=== PATIENT | female | born 1980 | race Two or more races ===

== ENCOUNTER 2019-11-06 11:40 | Observation (INO) | payer OTHER ==
[2019-11-06] MEDS ORDERED: PREN-96 PO (12:05)
== END 2019-11-06 13:55 | disposition home or self-care (01) ==
LOC: LDRP 11:40
PROVIDERS: ADMIT Specialist; ATTEND Specialist
DX: O99.89 Other specified diseases and conditions complicating pregnancy, childbirth and the puerperium (principal); N13.30 Unspecified hydronephrosis; Z3A.30 30 weeks gestation of pregnancy
CPT/HCPCS: 59025; 76818; 81002; G0378

== ENCOUNTER 2019-11-09 12:16 | Observation (INO) | payer OTHER ==
[~2019-11-09 12:16] MED LIST: PREN-96 PO
== END 2019-11-09 14:45 | disposition home or self-care (01) ==
LOC: LDRP 12:16
PROVIDERS: ADMIT Obstetrics & Gynecology; ATTEND Obstetrics & Gynecology
DX: O99.89 Other specified diseases and conditions complicating pregnancy, childbirth and the puerperium (principal); N13.30 Unspecified hydronephrosis; Z3A.30 30 weeks gestation of pregnancy
CPT/HCPCS: 59025; 76818; 81002; G0378

== ENCOUNTER 2019-11-17 11:56 | Observation (INO) | payer OTHER | END 2019-11-17 13:44 | disposition home or self-care (01) | LOC: LDRP 11:56 | PROVIDERS: ADMIT Obstetrics & Gynecology; ATTEND Obstetrics & Gynecology | DX: O99.89 Other specified diseases and conditions complicating pregnancy, childbirth and the puerperium (principal); N13.30 Unspecified hydronephrosis; Z3A.31 31 weeks gestation of pregnancy | CPT/HCPCS: 59025; 76818; 81002; G0378 ==

== ENCOUNTER 2019-11-24 11:57 | Observation (INO) | payer OTHER | END 2019-11-24 13:05 | disposition home or self-care (01) | LOC: LDRP 11:57 | PROVIDERS: ADMIT Obstetrics & Gynecology; ATTEND Obstetrics & Gynecology | DX: O26.833 Pregnancy related renal disease, third trimester (principal); Z3A.32 32 weeks gestation of pregnancy | CPT/HCPCS: 59025; 76818; 81002; G0378 ==

== ENCOUNTER 2019-12-01 11:03 | Observation (INO) | payer OTHER | END 2019-12-01 12:22 | disposition home or self-care (01) | LOC: LDRP 11:03 | PROVIDERS: ADMIT Specialist; ATTEND Specialist | DX: O23.03 Infections of kidney in pregnancy, third trimester (principal); Z3A.33 33 weeks gestation of pregnancy | CPT/HCPCS: 59025; 76818; 81002; G0378 ==

== ENCOUNTER 2019-12-08 12:34 | Observation (INO) | payer OTHER | END 2019-12-08 13:50 | disposition home or self-care (01) | LOC: LDRP 12:34 | PROVIDERS: ADMIT Specialist; ATTEND Specialist | DX: O23.03 Infections of kidney in pregnancy, third trimester (principal); Z3A.34 34 weeks gestation of pregnancy; Z98.891 History of uterine scar from previous surgery | CPT/HCPCS: 59025; 76818; 81002; G0378 ==

== ENCOUNTER 2019-12-17 19:50 | Observation (INO) | payer OTHER | END 2019-12-17 21:42 | disposition home or self-care (01) | LOC: LDRP 19:50 | PROVIDERS: ADMIT Obstetrics & Gynecology; ATTEND Obstetrics & Gynecology | DX: N13.30 Unspecified hydronephrosis (principal); O26.833 Pregnancy related renal disease, third trimester; O09.523 Supervision of elderly multigravida, third trimester; Z3A.36 36 weeks gestation of pregnancy | CPT/HCPCS: 59025; 76818; 81002; G0378 ==

== ENCOUNTER → 2019-12-22 20:21 | Observation (INO) | payer OTHER ==
[~2019-12-22] VITALS: Ht 162.6 cm; Wt 84.8 kg
== END | disposition home or self-care (01) ==
LOC: LDRP 20:21
PROVIDERS: ADMIT Obstetrics & Gynecology; ATTEND Obstetrics & Gynecology
DX: O35.8XX0 Maternal care for other (suspected) fetal abnormality and damage, not applicable or unspecified (principal); Z3A.36 36 weeks gestation of pregnancy
CPT/HCPCS: 59025; 76818; 81002; G0378

== ENCOUNTER 2020-01-05 18:00 | Observation (INO) | payer OTHER | END 2020-01-05 19:55 | disposition home or self-care (01) | LOC: LDRP 18:00 | PROVIDERS: ADMIT Obstetrics & Gynecology; ATTEND Obstetrics & Gynecology | DX: O99.891 Other specified diseases and conditions complicating pregnancy (principal); N13.30 Unspecified hydronephrosis; Z20.828 Contact with and (suspected) exposure to other viral communicable diseases; O62.9 Abnormality of forces of labor, unspecified; Z3A.38 38 weeks gestation of pregnancy | CPT/HCPCS: 59025; 76818; 81002; G0378; U0003 ==

== ENCOUNTER 2020-01-07 05:53 | Inpatient (IN) | payer OTHER ==
[~2020-01-07] VITALS: Ht 1 cm; Wt 1.0 kg
[2020-01-07] VITALS (19 sets, daily range): BP systolic 95–117; BP diastolic 50–89
[2020-01-07] MEDS ORDERED: LACTATED RINGER'S 1,000 ML IV ONE (06:15)
[2020-01-07] MEDS ORDERED: ceFAZolin 1GM/50ML 50 ML IV ONE (06:15)
[2020-01-07 06:49] LABS: Urine Amorphous Crystal FEW /hpf (None Seen); Urine Bacteria FEW /hpf (None Seen); Urine Blood Negative /uL (Negative); Urine Specific Gravity 1.018 (1.001-1.035); Urine WBC 2 /hpf (0 - 5)
[2020-01-07 07:40] LABS: Basophils # (auto) 0 10 ^3/uL (0-0.2); Basophils % (auto) 0.1 % (0.0-2.0); Eosinophils # (auto) 0.1 10 ^3/uL (0-0.8); Eosinophils % (auto) 1.2 % (0.0-7.0); Hematocrit 33.9 % (36.0-46.0); Hemoglobin 11.5 g/dL (12.2-16.2); Lymphocytes # (auto) 2.1 10 ^3/uL (0.4-5.4); Lymphocytes % (auto) 22.9 % (10.0-50.0); Mean Corpuscular Hemoglobin 32.7 pg (28.0-32.0); Mean Corpuscular Hgb Conc. 34.1 g/dL (32.0-36.0); Mean Corpuscular Volume 95.9 fL (80.0-100.0); Monocytes # (auto) 0.8 10 ^3/uL (0-1.3); Monocytes % (auto) 8.2 % (0.0-12.0); Neutrophils # (auto) 6.2 10 ^3/uL (1.6-8.6); Neutrophils % (auto) 67.6 % (37.0-80.0); Nucleated Red Blood Cells % 0.1 %; Platelet Count (auto) 168 10^3/uL (140-450); Red Blood Cells 3.53 10^6/uL (4.0-5.20); Red Cell Distribution Width 14.7 % (11.8-14.3); White Blood Cell 9.2 10^3/uL (4.4-10.8)
[2020-01-07] MEDS ORDERED: TERBUTALINE SULFATE 1 MG/ML 1ML VIAL SC ONE (07:45)
[2020-01-07 07:48] LABS: Albumin 2.5 g/dL (3.4-5.0); BUN/Creatinine Ratio 14.3; Calcium 8.4 mg/dL (8.5-10.1); Potassium 3.3 mmol/L (3.5-5.1)
[2020-01-07 07:51] LABS: Bilirubin, Total 0.3 mg/dL (0.2-1.0); Total Protein 6.6 g/dL (6.4-8.2)
[2020-01-07 07:53] LABS: INR 0.94 (0.9-1.15); Partial Thromboplastin Time 26.4 sec (23.0-31.2)
[2020-01-07] MEDS ORDERED: EPINEPHrine HCL 1 MG/1 ML AMP ONE (08:24)
[2020-01-07] MEDS ORDERED: oxyTOCIN 10 UNIT/ML 10ML VIAL ONE (08:24)
[2020-01-07] MEDS ORDERED: SODIUM CHLORIDE LOCK 10 ML ONE (08:24)
[2020-01-07] MEDS ORDERED: MORPHINE SULF(PF) 0.5MG/ML 10ML VIAL ONE (08:24)
[2020-01-07] MEDS ORDERED: MIDAZOLAM HCL 1MG/1ML-2 ML VIAL ONE (08:24)
[2020-01-07] MEDS ORDERED: fentaNYL CITRATE 100 MCG/2 ML VL ONE (08:24)
[2020-01-07] MEDS ORDERED: ONDANSETRON HCL 4 MG/2 ML VIAL ONE (08:24)
[2020-01-07] MEDS ORDERED: TETRACAINE 1% INJ 2 ML VIAL IJ ONE ×2 (09:08→09:25)
[2020-01-07] MEDS ORDERED: ONDANSETRON HCL 4 MG/2 ML VIAL IV PRN (11:30)
[2020-01-07] MEDS ORDERED: KETOROLAC TROMETH 30 MG/ML 1ML VIAL IV PRN (11:30)
[2020-01-07] MEDS ORDERED: GUM (CHEWING) 1 GUM CHEW CHEW ONE (11:30)
[2020-01-07] MEDS ORDERED: ceFAZolin 1GM/50ML 50 ML IV SCH (11:30)
[2020-01-07] MEDS: LACTATED RINGER'S 1,000 ML IV SCH ×2 (13:06→16:38)
[2020-01-07] MEDS ORDERED: RHO (D) IMMUNE GLOBULIN 300 MCG INJ IM ONE (13:15)
[2020-01-07] MEDS ORDERED: ACETAMINOPHEN IV 1000 MG/100ML (10MG/ML) IV ONE (14:00)
[2020-01-07] MEDS ORDERED: TETANUS-DIPTH-ACEL PERTUSSIS 0.5ML SYR Tdap IM ONE (18:15)
[2020-01-07] MEDS ORDERED: INFLUENZA QUAD 2020-2021 0.5 ML SYRG IM ONE (18:15)
[2020-01-07] MEDS: ceFAZolin 1GM/50ML 50 ML IV SCH (18:54)
[2020-01-07] MEDS: HYDROmorphone HCL 2 MG/ML VL IV PRN (22:33)
[2020-01-08] VITALS (12 sets, daily range): BP systolic 92–124; BP diastolic 57–74
[2020-01-08] MEDS: ceFAZolin 1GM/50ML 50 ML IV SCH ×2 (04:08→11:24)
[2020-01-08 05:06] LABS: RPR Non Reactive (Non Reactive)
[2020-01-08] MEDS ORDERED: POTASSIUM CHL 20 Meq TABLET PO ONE (05:15)
[2020-01-08] MEDS: HYDROmorphone HCL 2 MG/ML VL IV PRN (05:37)
[2020-01-08 06:27] LABS: Basophils # (auto) 0 10 ^3/uL (0-0.2); Basophils % (auto) 0.3 % (0.0-2.0); Eosinophils # (auto) 0.1 10 ^3/uL (0-0.8); Eosinophils % (auto) 1.7 % (0.0-7.0); Hematocrit 30.2 % (36.0-46.0); Hemoglobin 10.4 g/dL (12.2-16.2); Lymphocytes # (auto) 1.7 10 ^3/uL (0.4-5.4); Lymphocytes % (auto) 21.3 % (10.0-50.0); Mean Corpuscular Hemoglobin 33.3 pg (28.0-32.0); Mean Corpuscular Hgb Conc. 34.6 g/dL (32.0-36.0); Mean Corpuscular Volume 96.3 fL (80.0-100.0); Monocytes # (auto) 0.9 10 ^3/uL (0-1.3); Monocytes % (auto) 10.6 % (0.0-12.0); Neutrophils # (auto) 5.3 10 ^3/uL (1.6-8.6); Neutrophils % (auto) 66.1 % (37.0-80.0); Nucleated Red Blood Cells % 0.1 %; Platelet Count (auto) 145 10^3/uL (140-450); Red Blood Cells 3.14 10^6/uL (4.0-5.20)
[2020-01-08] MEDS ORDERED: HYDROcodone-ACET 5/325MG TAB PO PRN (09:30)
[2020-01-08] MEDS ORDERED: BISACODYL 10 MG RECT SUPP PR PRN (09:30)
[2020-01-08] MEDS: DOCUSATE CALCIUM 240 MG CAP PO SCH (09:55)
[2020-01-08] MEDS: DOCUSATE SOD 100 MG CAP PO SCH ×2 (09:55→22:53)
[2020-01-08] MEDS: IBUPROFEN 800 MG TAB PO PRN ×2 (09:56→22:53)
[2020-01-08] MEDS: SIMETHICONE 80 MG CHEWABLE TABLET PO SCH ×3 (11:24→22:53)
[2020-01-08] MEDS: HYDROcodone-ACET 5/325MG TAB PO PRN (15:54)
[2020-01-09 03:00] VITALS: BP 111/72
[2020-01-09] MEDS: HYDROcodone-ACET 5/325MG TAB PO PRN ×2 (03:33→16:39)
[2020-01-09] MEDS: SIMETHICONE 80 MG CHEWABLE TABLET PO SCH ×4 (05:44→22:54)
[2020-01-09 07:00] VITALS: BP 119/73
[2020-01-09 07:00] LABS: Calcium 7.9 mg/dL (8.5-10.1); Potassium 3.6 mmol/L (3.5-5.1)
[2020-01-09 07:06] LABS: BUN/Creatinine Ratio 11.1; Bilirubin, Total 0.2 mg/dL (0.2-1.0); Total Protein 5.5 g/dL (6.4-8.2)
[2020-01-09] MEDS: IBUPROFEN 800 MG TAB PO PRN ×2 (07:22→22:53)
[2020-01-09] MEDS: DOCUSATE SOD 100 MG CAP PO SCH ×2 (10:24→22:52)
[2020-01-09] MEDS: DOCUSATE CALCIUM 240 MG CAP PO SCH (10:24)
[2020-01-09 11:00] VITALS: BP 115/81
[2020-01-09 15:10] VITALS: BP 108/70
[2020-01-09 19:30] VITALS: BP 115/70
[2020-01-09] MEDS ORDERED: INFLUENZA QUAD 2020-2021 0.5 ML SYRG IM ONE (22:43)
[2020-01-09 23:00] VITALS: BP 116/71
[2020-01-10 03:00] VITALS: BP 116/73
[2020-01-10] MEDS: SIMETHICONE 80 MG CHEWABLE TABLET PO SCH (05:32)
[2020-01-10 07:00] VITALS: BP 102/64
[2020-01-10 10:48] VITALS: BP 102/64
== END 2020-01-10 10:48 | disposition home or self-care (01) | DRG 784 ==
LOC: LDRP 05:53
PROVIDERS: ADMIT Obstetrics & Gynecology; ATTEND Obstetrics & Gynecology
PROC: 0UL70CZ Occlusion of Bilateral Fallopian Tubes with Extraluminal Device, Open Approach (ICD-10-PCS; 2020-01-07)
PROC: 3E0234Z Introduction of Serum, Toxoid and Vaccine into Muscle, Percutaneous Approach (ICD-10-PCS; 2020-01-07)
PROC: 10D00Z1 Extraction of Products of Conception, Low, Open Approach (ICD-10-PCS; principal; 2020-01-07 09:41)
PROC: 3E02340 Introduction of Influenza Vaccine into Muscle, Percutaneous Approach (ICD-10-PCS; 2020-01-09)
PROC: 3E0234Z Introduction of Serum, Toxoid and Vaccine into Muscle, Percutaneous Approach (ICD-10-PCS; 2020-01-09)
DX: O34.211 Maternal care for low transverse scar from previous cesarean delivery (principal); N13.30 Unspecified hydronephrosis; O99.02 Anemia complicating childbirth; O99.892 Other specified diseases and conditions complicating childbirth; Z3A.39 39 weeks gestation of pregnancy; Z37.0 Single live birth; O26.893 Other specified pregnancy related conditions, third trimester; Z67.41 Type O blood, Rh negative; Z23 Encounter for immunization
CPT/HCPCS: 36415; 59025; 80053; 81001; 81002; 84112; 85025; 85610; 85730; 86592; 86850; 86900; 86901; 90384; 94762; 96360; 96361; 96372; 96374; 96375; G0378; J0131; J0171; J0690; J1885; J2250; J2405; J2590

== ENCOUNTER 2020-07-30 00:21 | Emergency (ER) | payer OTHER ==
[~2020-07-30] VITALS: Ht 162.6 cm; Wt 83.9 kg
[2020-07-30 02:44] LABS: Basophils # (auto) 0 10 ^3/uL (0-0.2); Basophils % (auto) 0.4 % (0.0-2.0); Eosinophils # (auto) 0.1 10 ^3/uL (0-0.8); Eosinophils % (auto) 1.3 % (0.0-7.0); Hematocrit 37.2 % (36.0-46.0); Hemoglobin 13.2 g/dL (12.2-16.2); Lymphocytes # (auto) 1.7 10 ^3/uL (0.4-5.4); Lymphocytes % (auto) 17.2 % (10.0-50.0); Mean Corpuscular Hemoglobin 31.7 pg (28.0-32.0); Mean Corpuscular Hgb Conc. 35.5 g/dL (32.0-36.0); Mean Corpuscular Volume 89.4 fL (80.0-100.0); Monocytes # (auto) 0.5 10 ^3/uL (0-1.3); Monocytes % (auto) 5.1 % (0.0-12.0); Neutrophils # (auto) 7.6 10 ^3/uL (1.6-8.6); Platelet Count (auto) 257 10^3/uL (140-450); Red Blood Cells 4.16 10^6/uL (4.0-5.20); Red Cell Distribution Width 13.9 % (11.8-14.3)
[2020-07-30 02:58] LABS: Albumin 3.9 g/dL (3.4-5.0); Calcium 8.7 mg/dL (8.5-10.1); Potassium 3.7 mmol/L (3.5-5.1)
[2020-07-30 03:02] LABS: BUN/Creatinine Ratio 18.1; Bilirubin, Total 0.3 mg/dL (0.2-1.0); Total Protein 8.6 g/dL (6.4-8.2)
[2020-07-30] MEDS ORDERED: ONDANSETRON ODT 4 MG TAB PO ONE ×2 (03:38→03:45)
[2020-07-30 05:42] LABS: Urine Bacteria NONE SEEN /hpf (None Seen); Urine Blood 1+ /uL (Negative); Urine Mucus FEW (None Seen); Urine Specific Gravity 1.027 (1.001-1.035); Urine WBC 1 /hpf (0 - 5)
[2020-07-30 07:19] VITALS: BP 153/80
== END 2020-07-30 08:53 | disposition home or self-care (01) ==
LOC: ER 00:21
DX: K52.9 Noninfective gastroenteritis and colitis, unspecified (principal); Z79.899 Other long term (current) drug therapy; Z90.49 Acquired absence of other specified parts of digestive tract; Z98.890 Other specified postprocedural states
CPT/HCPCS: 36415; 74176; 80053; 81001; 85025; 99284; Q0162